=== PATIENT | female | born 1960 | race African-American/Black ===

== ENCOUNTER 2018-02-27 11:27 | Inpatient (IN) | payer OTHER ==
[2018-02-27 13:24] VITALS: BMI 32.9
--- NOTE | 2018-02-27 13:24 | HP ---
Admission ROS [facility] Allergies/Adverse Reactions: Allergies Allergy/AdvReac Type Severity Reaction Status Date / Time No Known Allergies Allergy Verified 02/27/18 14:53 - Ebola screening Have you traveled outside of the country in the last 21 days: No Have you had contact with anyone from an Ebola affected area: No Do you have a fever: No Patient History - Smoking Cessation Smoking history: Smoker current status UNK Have you smoked in the past 12 months: No Hx Chewing Tobacco Use: No Initiated information on smoking cessation: No Screened but not Admitted - Documentation of Visit Additional Information/Explanation: history of asthma and copd, smoke 5 +/- cigarettes and crack daily, c/o shortness of breath, pressure "of my lungs", as own meds ventolin pump x 1 symbicort x 1 + nebulizer albuteral 0.083% x 1, patient has hypertension and diabetes bgm 168, able to oral intak fluid [facility] Breath Alcohol Content Breath Alcohol Content: 0.082 Vital Signs - Vital Signs Vital Signs Refused: No Temperature: 98.9 F Temperature Source: Oral Pulse Rate: 118 Respiratory Rate: 20 Blood Pressure: 144/74 BP Location: Left Arm Blood Pressure Position: Sitting - Height Height: 5 ft 6 in - Weight Weight: 204 lb Weight Measurement Method: Standing Scale Body Mass Index (BMI): 32.9 - Bowel Function Bowel Movement: No
--- NOTE | 2018-02-27 15:23 | HP ---
CIWA Score - CIWA Score Nausea/Vomitin Muscle Tremors: 3 Anxiety: 3 Agitation: 3 Paroxysmal Sweats: 2 Orientation: 0-Oriented Tacttile Disturbances: 2-Mild Itch/Numbness/Burn Auditory Disturbances: 2-Mild Harshness/Frighten Visual Disturbances: 0-None Headache: 2-Mild CIWA-Ar Total Score: 20 Admission ROS [facility] - HPI Chief Complaint: i need help to stop drinking alcohol and crack Allergies/Adverse Reactions: Allergies Allergy/AdvReac Type Severity Reaction Status Date / Time No Known Allergies Allergy Verified 02/27/18 14:53 History of Present Illness: this 57 years old female with alcohol and cocaine dependence,seeking detox, withdrawal symptom,last detox in 2014 [facility] [place] [facility] history of asthma has attack on monday02/23/18 seen [place] on prednisone patient received nebulizer treatment on arrival in [facility] with difficulty in breathing history of dm longest period of sobriety 2 years anxiety,depression,insomnia - Ebola screening Have you traveled outside of the country in the last 21 days: No Have you had contact with anyone from an Ebola affected area: No Have you been sick,other than usual withdrawal symptoms: No Do you have a fever: No - Review of Systems Constitutional: Loss of Appetite, Malaise, Night Sweats, Changes in sleep, Weakness EENT: reports: Nose Congestion Respiratory: reports: Wheezing GI: reports: Diarrhea, Nausea, Vomiting, Abdominal cramping : reports: No Symptoms Reported Musculoskeletal: reports: Back Pain, Muscle Pain Integumentary: reports: Dryness Neuro: reports: Tremors Endocrine: reports: No Symptoms Reported, Other (type 2 dm) Hematology: reports: No Symptoms Reported Psychiatric: reports: No Sypmtoms Reported (insomnia), Judgement Intact, Mood/ Affect Appropiate, Anxious, Depressed Other Systems: Reviewed and Negative Patient History - Patient Medical History Hx Asthma: Yes (on albuterol inhaler) Hx Chronic Obstructive Pulmonary Disease (COPD): No Hx Cardiac Disorders: No Hx Hypertension: Yes (non compliant with meds.) Hx Seizures: No Hx Diabetes: Yes (non compliant with meds.) Hx Gastrointestinal Disorders: No Hx Genitourinary Disorders: No Hx Sexually Transmitted Disorders: No Hx Renal Disease (ESRD): No Hx Thyroid Disease: No Hx Human Immunodeficiency Virus (HIV): No (negative last 02/12) Hx Hepatitis C: No Hx Depression: No Hx Suicide Attempt: No Hx Bipolar Disorder: No Hx Schizophrenia: No Other Medical History: in somnia,no suicidal,no homicidal - Patient Surgical History Past Surgical History: No - PPD History Previous Implant?: Yes Documented Results: Negative w/o proof Implanted On Prior R Admission?: No PPD to be Administered?: Yes - Reproductive History Patient is a Female of Child Bearing Age (11 -55 yrs old): No Patient : No - Smoking Cessation Smoking history: Current every day smoker Have you smoked in the past 12 months: Yes Aproximately how many cigarettes per day: 2 Hx Chewing Tobacco Use: No Initiated information on smoking cessation: Yes 'Breaking Loose' booklet given: 02/27/18 - Substance & Tx. History Hx Alcohol Use: Yes Hx Substance Use: Yes Substance Use Type: Alcohol, Cocaine Hx Substance Use Treatment: Yes (last 2012 in the [facility]) - Substances Abused Alcohol Route: Oral Frequency: Daily Amount used: 2 PINTS TESHA Age of first use: 17 Date of Last Use: 02/27/18 Crack Route: Smoking Frequency: Daily Amount used: $20-50 Age of first use: 17 Date of Last Use: 02/27/18 Family Disease History - Family Disease History Family History: Denies Admission Physical Exam S - Vital Signs Vital Signs: Vital Signs - 24 hr 02/27/18 02/27/18 13:28 14:44 Temperature 98.9 F 98.9 F Pulse Rate 118 H 118 H Respiratory 20 20 Rate Blood Pressure 144/74 144/74 - Physical General Appearance: Yes: Moderate Distress, Tremorous, Irritable, Sweating, Anxious HEENTM: Yes: Normocephalic, TOM, Pharynx Normal Respiratory: Yes: No Respiratory Distress, Wheezing Breast: Yes: Breast Exam Deferred Cardiology: Yes: S1, S2, Tachycardia Abdominal: Yes: Within Normal Limits, Normal Bowel Sounds, Non Tender, Flat, Soft Genitourinary: Yes: Within Normal Limits Back: Yes: Muscle Spasm Musculoskeletal: Yes: Within Normal Limits, Back pain, Muscle Pain Extremities: Yes: Within Normal Limits, Tremors Neurological: Yes: rn oncology research II-XII NML intact, Fully Oriented, Alert, Motor Strength 5/5 Integumentary: Yes: Dry Lymphatic: Yes: Within Normal Limits - Diagnostic (1) Alcohol dependence with uncomplicated withdrawal Current Visit: Yes Status: Acute (2) Cocaine dependence Current Visit: Yes Status: Acute (3) Essential hypertension Current Visit: Yes Status: Acute (4) DM2 (diabetes mellitus, type 2) Current Visit: Yes Status: Acute (5) Nicotine dependence Current Visit: Yes Status: Acute (6) Acute exacerbation of extrinsic asthma Current Visit: Yes Status: Acute (7) Insomnia Current Visit: Yes Status: Acute Cleared for Admission S - Detox or Rehab [facility] Level of Care: Medically Managed Detox Regimen/Protocol: Librium S Breath Alcohol Content Breath Alcohol Content: 0.082 Urine Pregancy Test - Result Urine Test Results: Negative- NO Line Present Urine Drug Screen - Results Drug Screen Negative: No Urine Drug Screen Results: [place]-Cocaine
[2018-02-27] MEDS ORDERED: chlordiazePOXIDE HCL 25 MG CAPSULE PO PRN (15:36)
[2018-02-27] MEDS ORDERED: hydrOXYzine PAMOATE 25 MG CAPSULE (FP) PO PRN (15:36)
[2018-02-27] MEDS ORDERED: MAG HYDROX/AL HYDROX/SIMETH 30 ML UNIT-DOSE CUP PO PRN (15:36)
[2018-02-27] MEDS ORDERED: guaiFENesin/D-METHORPHAN HB 10 ML UNIT-DOSE CUPS PO PRN (15:36)
[2018-02-27] MEDS ORDERED: MAGNESIUM HYDROX 2400MG/30ML ORAL SUSPENSION 30 ML CUP PO PRN (15:36)
[2018-02-27] MEDS ORDERED: ACETAMINOPHEN 325 MG TABLET (FP) PO PRN (15:36)
[2018-02-27] MEDS ORDERED: P-EPHED 60MG/TRIPROLIDI 2.5MG TABLET PO PRN (15:36)
[2018-02-27] MEDS ORDERED: LOPERAMIDE HCL 2 MG CAPSULE PO PRN (15:36)
[2018-02-27] MEDS ORDERED: MENTHOL/PHENOL 1 EACH UD MM PRN (15:36)
[2018-02-27] MEDS ORDERED: IBUPROFEN 400 MG TABLET (FP) PO PRN (15:36)
[2018-02-27] MEDS ORDERED: MAGNESIUM CITRATE 300 ML BOTTLE PO PRN (15:36)
[2018-02-27] MEDS ORDERED: ALBUTEROL SO4 2.5/IPRATROPIUM 0.5 INH SOL 3 ML VIAL.NEB. NEB PRN (15:43)
[2018-02-27] MEDS ORDERED: chlordiazePOXIDE HCL 25 MG CAPSULE PO ONE (15:45)
[2018-02-27] MEDS ORDERED: predniSONE 20 MG TABLET (UD) PO ONE (15:45)
[2018-02-27] MEDS: HYDROCHLOROTHIAZIDE 25 MG TABLET (FP) PO SCH (17:48)
[2018-02-27] MEDS: chlordiazePOXIDE HCL 25 MG CAPSULE PO SCH ×2 (18:04→22:40)
[2018-02-27] MEDS ORDERED: MELATONIN 5 MG TABLETS PO PRN (22:00)
[2018-02-27] MEDS: THIAMINE HCL 100 MG TABLET (FP) PO SCH (22:40)
[2018-02-27] MEDS: BUDESONIDE/FORMETEROL FUMARATE 160/4.5 mcg INHALER IH SCH (22:40)
[2018-02-28] MEDS: chlordiazePOXIDE HCL 25 MG CAPSULE PO SCH ×4 (06:00→22:08)
[2018-02-28] MEDS: metFORMIN HCL 500 MG TABLET (FP) PO SCH (06:40)
--- NOTE | 2018-02-28 09:02 | EKG ---
Test Reason : Blood Pressure : / mmHG Vent. Rate : 114 BPM Atrial Rate : 114 BPM P-R Int : 148 ms QRS Dur : 072 ms QT Int : 356 ms P-R-T Axes : 077 048 048 degrees QTc Int : 490 ms SINUS TACHYCARDIA NONSPECIFIC ST ABNORMALITY ABNORMAL ECG NO PREVIOUS ECGS AVAILABLE Confirmed by CHLOE OLSEN, ZEV ([id number]) on 02/28/2018 9:01:42 AM Referred By: Confirmed By:ZEV CORONA MD
[2018-02-28 09:37] LABS: HEMATOCRIT 40.4 % (32.4-45.2); HEMOGLOBIN 14.1 GM/dL (10.7-15.3); MCH 32.8 pg (25.7-33.7); MCHC 34.8 g/dl (32.0-36.0); MEAN CELL VOLUME 94.1 fl (80-96); MEAN PLT VOLUME 8.1 fl (7.5-11.1); PLATELET COUNT 251 K/MM3 (134-434); RDW 12.6 % (11.6-15.6); WHITE BLOOD COUNT 7.2 K/mm3 (4.0-10.0)
[2018-02-28 09:58] LABS: CHLORIDE 103 mmol/L (98-107); POTASSIUM 3.8 mmol/L (3.5-5.1); SODIUM 140 mmol/L (136-145)
[2018-02-28] MEDS ORDERED: predniSONE 10 MG TABLET (UD) PO ONE (10:00)
[2018-02-28 10:24] LABS: ALBUMIN 3.5 g/dl (3.4-5.0); ALK PHOS 87 U/L (45-117); ANION GAP 12 (8-16); BILIRUBIN,TOTAL 0.4 mg/dL (0.2-1.0); BLOOD UREA NITROGEN 13 mg/dL (7-18); CALCIUM 8.7 mg/dL (8.5-10.1); CO2 25 mmol/L (21-32); CREATININE 0.8 mg/dL (0.55-1.02); GLUCOSE,RANDOM 250 mg/dL (74-106); SGOT/AST 30 U/L (15-37); SGPT/ALT 33 U/L (12-78); TOT PROT 6.9 g/dl (6.4-8.2)
[2018-02-28] MEDS: BUDESONIDE/FORMETEROL FUMARATE 160/4.5 mcg INHALER IH SCH ×2 (10:49→22:08)
[2018-02-28] MEDS: PRENATAL VITAMINS W/ FOLIC ACID TABLET (FP) PO SCH (10:49)
[2018-02-28] MEDS: HYDROCHLOROTHIAZIDE 25 MG TABLET (FP) PO SCH (10:49)
[2018-02-28 10:58] LABS: URINE APPEARANCE CLEAR; URINE BILIRUBIN NEGATIVE (<2.0 mg/dL); URINE COLOR LTYELLOW; URINE GLUCOSE (UA) 2+ (NEGATIVE); URINE KETONE NEGATIVE (NEGATIVE); URINE LEUK ESTERASE NEGATIVE (NEGATIVE); URINE NITRITE NEGATIVE (NEGATIVE); URINE PROTEIN NEGATIVE (NEGATIVE); URINE UROBILINOGEN NEGATIVE mg/dL (0.2-1.0)
[2018-02-28 11:08] LABS: RPR REACTIVE 1:4 (NONREACTIVE)
--- NOTE | 2018-02-28 12:10 | PN ---
[facility] CIWA - CIWA Score Nausea/Vomitin-Mild Nausea/No Vomiting Muscle Tremors: 4-Moderate,w/Arms Extend Anxiety: 4-Mod. Anxious/Guarded Agitation: 4-Moderately Restless Paroxysmal Sweats: 1-Minimal Palms Moist Orientation: 1-Uncertain about Date Tacttile Disturbances: 0-None Auditory Disturbances: 0-None Visual Disturbances: 0-None Headache: 0-None Present CIWA-Ar Total Score: 15 [facility]HS Progress Note (SOAP) Subjective: sweat tremor trouble sleep at night Objective: 02/28/18 12:08 Vital Signs Temperature 98.9 F 02/28/18 12:05 Pulse Rate 118 H 02/28/18 12:05 Respiratory Rate 20 02/28/18 12:05 Blood Pressure 144/74 02/28/18 12:05 O2 Sat by Pulse Oximetry (%) Laboratory Last Values WBC 7.2 K/mm3 (4.0-10.0) 02/28/18 08:00 RBC 4.30 M/mm3 (3.60-5.2) 02/28/18 08:00 Hgb 14.1 GM/dL (10.7-15.3) 02/28/18 08:00 Hct 40.4 % (32.4-45.2) 02/28/18 08:00 MCV 94.1 fl (80-96) 02/28/18 08:00 MCH 32.8 pg (25.7-33.7) 02/28/18 08:00 MCHC 34.8 g/dl (32.0-36.0) 02/28/18 08:00 RDW 12.6 % (11.6-15.6) 02/28/18 08:00 Plt Count 251 K/MM3 (134-434) 02/28/18 08:00 MPV 8.1 fl (7.5-11.1) 02/28/18 08:00 Sodium 140 mmol/L (136-145) 02/28/18 08:00 Potassium 3.8 mmol/L (3.5-5.1) 02/28/18 08:00 Chloride 103 mmol/L (98-107) 02/28/18 08:00 Carbon Dioxide 25 mmol/L (21-32) 02/28/18 08:00 Anion Gap 12 (8-16) 02/28/18 08:00 BUN 13 mg/dL (7-18) 02/28/18 08:00 Creatinine 0.8 mg/dL (0.55-1.02) 02/28/18 08:00 Creat Clearance w eGFR > 60 (>60) 02/28/18 08:00 POC Glucometer 198 UNITS (80-120) 02/28/18 06:38 Random Glucose 250 mg/dL (74-106) H 02/28/18 08:00 Calcium 8.7 mg/dL (8.5-10.1) 02/28/18 08:00 Total Bilirubin 0.4 mg/dL (0.2-1.0) 02/28/18 08:00 AST 30 U/L (15-37) 02/28/18 08:00 ALT 33 U/L (12-78) 02/28/18 08:00 Alkaline Phosphatase 87 U/L (45-117) 02/28/18 08:00 Total Protein 6.9 g/dl (6.4-8.2) 02/28/18 08:00 Albumin 3.5 g/dl (3.4-5.0) 02/28/18 08:00 Urine Color Ltyellow 02/28/18 09:50 Urine Appearance Clear 02/28/18 09:50 Urine pH 6.0 (5.0-8.0) 02/28/18 09:50 Ur Specific [place] 1.018 (1.001-1.035) 02/28/18 09:50 Urine Protein Negative (NEGATIVE) 02/28/18 09:50 Urine Glucose (UA) 2+ (NEGATIVE) H 02/28/18 09:50 Urine Ketones Negative (NEGATIVE) 02/28/18 09:50 Urine Blood Negative (NEGATIVE) 02/28/18 09:50 Urine Nitrite Negative (NEGATIVE) 02/28/18 09:50 Urine Bilirubin Negative (<2.0 mg/dL) 02/28/18 09:50 Urine Urobilinogen Negative mg/dL (0.2-1.0) 02/28/18 09:50 Ur Leukocyte Esterase Negative (NEGATIVE) 02/28/18 09:50 RPR Titer Reactive 1:4 (NONREACTIVE) H 02/28/18 08:00 HIV 1&2 Antibody Screen Negative 02/28/18 08:00 HIV P24 Antigen Negative 02/28/18 08:00 lab noted "10+ years ago" patient stated that she was treated for syphilis many years ago and the number always around 1:4 Assessment: 02/28/18 12:09 withdrawal sx debra 02/28/18 12:09 Plan: continue detox no syphilis treatment at this time discuss safe sex
[2018-02-28 13:48] LABS: TREPONEMA ANTIBODY REACTIVE (NONREACTIVE)
--- NOTE | 2018-02-28 14:40 | CONSULT ---
[facility] Psychiatric Consult - Data Date of interview: 02/28/18 Admission source: [facility] Identifying data: Patient is a 57 year old single female, mother of two, unemployed, homeless, and supported by [facility]. This is patient's first admission to detox at [facility]. Pt. admitted to for alcohol and cocaine dependence. Substance Abuse History: Smoking Cessation. Smoking history: Current every day smoker. Have you smoked in the past 12 months: Yes. Aproximately how many cigarettes per day: 2. Hx Chewing Tobacco Use: No. Initiated information on smoking cessation: Yes. 'Breaking Loose' booklet given: 02/27/18. - Substance & Tx. History. Hx Alcohol Use: Yes. Hx Substance Use: Yes. Substance Use Type : Alcohol, Cocaine. Hx Substance Use Treatment: Yes (last 2012 in [facility]). - Substances Abused. Alcohol. Route: Oral. Frequency: Daily. Amount used : 2 PINTS TESHA. Age of first use: 17. Date of Last Use: 02/27/18. Crack. Route: Smoking. Frequency: Daily. Amount used: $20-50. Age of first use: 17. Date of Last Use: 02/27/18 Medical History: Asthma, hypertension, diabetes, Psychiatric History: Patient denies h/o psychiatric hospitalizations, outpatient care, and suicide attempt. Pt. reports h/o poor sleep and reports taking ambien 10mg for insomnia. Physical/Sexual Abuse/Trauma History: Denies. Mental Status Exam - Mental Status Exam Alert and Oriented to: Time, Place, Person Cognitive Function: Good Patient Appearance: Well Groomed Mood: Euthymic Affect: Mood Congruent Patient Behavior: Appropriate, Cooperative Speech Pattern: Appropriate Voice Loudness: Normal Thought Process: Intact, Goal Oriented Thought Disorder: Not Present Hallucinations: Denies Suicidal Ideation: Denies Homicidal Ideation: Denies Insight/Judgement: Poor Sleep: Poorly Appetite: Fair Muscle strength/Tone: Normal Gait/Station: Normal Psychiatric Findings - Problem List ([place] 1, 2,3) (1) Acute exacerbation of extrinsic asthma Current Visit: Yes Status: Acute (2) Alcohol dependence with uncomplicated withdrawal Current Visit: Yes Status: Acute (3) Cocaine dependence Current Visit: Yes Status: Acute (4) DM2 (diabetes mellitus, type 2) Current Visit: Yes Status: Acute (5) Essential hypertension Current Visit: Yes Status: Acute (6) Insomnia Current Visit: Yes Status: Acute (7) Nicotine dependence Current Visit: Yes Status: Acute - Initial Treatment Plan Initial Treatment Plan: Psychoeducation provided. Detoxification provided. Ambien 10mg qhs prn ordered for insomnia. Benefits and side effects discussed. Pt. made aware of the risk of parasomnia. Verbal consent given.
[2018-02-28] MEDS: ALBUTEROL SO4 8 GM HFA INHALER IH PRN ×2 (17:24→21:36)
[2018-02-28] MEDS: THIAMINE HCL 100 MG TABLET (FP) PO SCH (22:08)
[2018-02-28] MEDS: ZOLPIDEM TARTRATE 5 MG TABLET PO PRN (22:08)
[2018-03-01] MEDS ORDERED: predniSONE 20 MG TABLET (UD) PO ONE ×2 (01:00→10:00)
[2018-03-01] MEDS: chlordiazePOXIDE HCL 25 MG CAPSULE PO SCH ×2 (06:22→10:39)
[2018-03-01] MEDS: metFORMIN HCL 500 MG TABLET (FP) PO SCH (06:26)
[2018-03-01] MEDS: HYDROCHLOROTHIAZIDE 25 MG TABLET (FP) PO SCH (10:38)
[2018-03-01] MEDS: PRENATAL VITAMINS W/ FOLIC ACID TABLET (FP) PO SCH (10:38)
[2018-03-01] MEDS: BUDESONIDE/FORMETEROL FUMARATE 160/4.5 mcg INHALER IH SCH ×2 (10:39→21:56)
[2018-03-01] MEDS: LIDOCAINE 5% TOPICAL PATCH TP SCH (10:39)
--- NOTE | 2018-03-01 14:06 | PN ---
S CIWA - CIWA Score Nausea/Vomitin-Mild Nausea/No Vomiting Muscle Tremors: 4-Moderate,w/Arms Extend Anxiety: 3 Agitation: 3 Paroxysmal Sweats: 1-Minimal Palms Moist Orientation: 0-Oriented Tacttile Disturbances: 0-None Auditory Disturbances: 0-None Visual Disturbances: 0-None Headache: 0-None Present CIWA-Ar Total Score: 12 BHS Progress Note (SOAP) Subjective: sweat tremor irritable anxiety poor sleep Objective: 03/01/18 14:13 Vital Signs Temperature 97.5 F L 03/01/18 14:02 Pulse Rate 83 03/01/18 14:02 Respiratory Rate 18 03/01/18 14:02 Blood Pressure 130/67 03/01/18 14:02 O2 Sat by Pulse Oximetry (%) Laboratory Last Values WBC 7.2 K/mm3 (4.0-10.0) 02/28/18 08:00 RBC 4.30 M/mm3 (3.60-5.2) 02/28/18 08:00 Hgb 14.1 GM/dL (10.7-15.3) 02/28/18 08:00 Hct 40.4 % (32.4-45.2) 02/28/18 08:00 MCV 94.1 fl (80-96) 02/28/18 08:00 MCH 32.8 pg (25.7-33.7) 02/28/18 08:00 MCHC 34.8 g/dl (32.0-36.0) 02/28/18 08:00 RDW 12.6 % (11.6-15.6) 02/28/18 08:00 Plt Count 251 K/MM3 (134-434) 02/28/18 08:00 MPV 8.1 fl (7.5-11.1) 02/28/18 08:00 Sodium 140 mmol/L (136-145) 02/28/18 08:00 Potassium 3.8 mmol/L (3.5-5.1) 02/28/18 08:00 Chloride 103 mmol/L (98-107) 02/28/18 08:00 Carbon Dioxide 25 mmol/L (21-32) 02/28/18 08:00 Anion Gap 12 (8-16) 02/28/18 08:00 BUN 13 mg/dL (7-18) 02/28/18 08:00 Creatinine 0.8 mg/dL (0.55-1.02) 02/28/18 08:00 Creat Clearance w eGFR > 60 (>60) 02/28/18 08:00 POC Glucometer 122 UNITS (80-120) 03/01/18 06:24 Random Glucose 250 mg/dL (74-106) H 02/28/18 08:00 Calcium 8.7 mg/dL (8.5-10.1) 02/28/18 08:00 Total Bilirubin 0.4 mg/dL (0.2-1.0) 02/28/18 08:00 AST 30 U/L (15-37) 02/28/18 08:00 ALT 33 U/L (12-78) 02/28/18 08:00 Alkaline Phosphatase 87 U/L (45-117) 02/28/18 08:00 Total Protein 6.9 g/dl (6.4-8.2) 02/28/18 08:00 Albumin 3.5 g/dl (3.4-5.0) 02/28/18 08:00 Urine Color Ltyellow 02/28/18 09:50 Urine Appearance Clear 02/28/18 09:50 Urine pH 6.0 (5.0-8.0) 02/28/18 09:50 Ur Specific [place] 1.018 (1.001-1.035) 02/28/18 09:50 Urine Protein Negative (NEGATIVE) 02/28/18 09:50 Urine Glucose (UA) 2+ (NEGATIVE) H 02/28/18 09:50 Urine Ketones Negative (NEGATIVE) 02/28/18 09:50 Urine Blood Negative (NEGATIVE) 02/28/18 09:50 Urine Nitrite Negative (NEGATIVE) 02/28/18 09:50 Urine Bilirubin Negative (<2.0 mg/dL) 02/28/18 09:50 Urine Urobilinogen Negative mg/dL (0.2-1.0) 02/28/18 09:50 Ur Leukocyte Esterase Negative (NEGATIVE) 02/28/18 09:50 RPR Titer Reactive 1:4 (NONREACTIVE) H 02/28/18 08:00 T.pallidum Ab (MHA) Reactive (NONREACTIVE) 02/28/18 08:00 HIV 1&2 Antibody Screen Negative 02/28/18 08:00 HIV P24 Antigen Negative 02/28/18 08:00 lab noted 03/01/18 14:14 history of syphilis treated Assessment: 03/01/18 14:14 withdrawal sx Plan: continue detox
[2018-03-01] MEDS: chlordiazePOXIDE 5 MG CAPSULE PO SCH ×2 (17:29→22:42)
[2018-03-01] MEDS: THIAMINE HCL 100 MG TABLET (FP) PO SCH (21:56)
[2018-03-01] MEDS: ZOLPIDEM TARTRATE 5 MG TABLET PO PRN (22:00)
[2018-03-02] MEDS: chlordiazePOXIDE 5 MG CAPSULE PO SCH ×2 (05:39→11:02)
[2018-03-02] MEDS: metFORMIN HCL 500 MG TABLET (FP) PO SCH (07:24)
[2018-03-02] MEDS: BUDESONIDE/FORMETEROL FUMARATE 160/4.5 mcg INHALER IH SCH ×2 (09:07→22:25)
[2018-03-02] MEDS: ALBUTEROL SO4 8 GM HFA INHALER IH PRN (09:08)
[2018-03-02] MEDS ORDERED: predniSONE 10 MG TABLET (UD) PO ONE (10:00)
[2018-03-02] MEDS: PRENATAL VITAMINS W/ FOLIC ACID TABLET (FP) PO SCH (11:02)
[2018-03-02] MEDS: HYDROCHLOROTHIAZIDE 25 MG TABLET (FP) PO SCH (11:04)
[2018-03-02] MEDS: LIDOCAINE 5% TOPICAL PATCH TP SCH (11:04)
--- NOTE | 2018-03-02 12:47 | PN ---
S Progress Note (SOAP) Subjective: pt here for alcohol detox and cocaine use. Laying in bed Objective: 03/02/18 12:46 CBCD WBC 7.2 K/mm3 (4.0-10.0) 02/28/18 08:00 RBC 4.30 M/mm3 (3.60-5.2) 02/28/18 08:00 Hgb 14.1 GM/dL (10.7-15.3) 02/28/18 08:00 Hct 40.4 % (32.4-45.2) 02/28/18 08:00 MCV 94.1 fl (80-96) 02/28/18 08:00 MCHC 34.8 g/dl (32.0-36.0) 02/28/18 08:00 RDW 12.6 % (11.6-15.6) 02/28/18 08:00 Plt Count 251 K/MM3 (134-434) 02/28/18 08:00 MPV 8.1 fl (7.5-11.1) 02/28/18 08:00 CMP Sodium 140 mmol/L (136-145) 02/28/18 08:00 Potassium 3.8 mmol/L (3.5-5.1) 02/28/18 08:00 Chloride 103 mmol/L (98-107) 02/28/18 08:00 Carbon Dioxide 25 mmol/L (21-32) 02/28/18 08:00 Anion Gap 12 (8-16) 02/28/18 08:00 BUN 13 mg/dL (7-18) 02/28/18 08:00 Creatinine 0.8 mg/dL (0.55-1.02) 02/28/18 08:00 Creat Clearance w eGFR > 60 (>60) 02/28/18 08:00 Calcium 8.7 mg/dL (8.5-10.1) 02/28/18 08:00 Total Bilirubin 0.4 mg/dL (0.2-1.0) 02/28/18 08:00 AST 30 U/L (15-37) 02/28/18 08:00 ALT 33 U/L (12-78) 02/28/18 08:00 Alkaline Phosphatase 87 U/L (45-117) 02/28/18 08:00 Total Protein 6.9 g/dl (6.4-8.2) 02/28/18 08:00 Albumin 3.5 g/dl (3.4-5.0) 02/28/18 08:00 nl VS PE grossly nl Assessment: 03/02/18 12:47 Alcohol use disorder cocaine use Plan: alcohol detox protocol
[2018-03-02] MEDS: chlordiazePOXIDE HCL 10 MG CAPSULE PO SCH ×2 (17:04→22:25)
[2018-03-02 21:57] VITALS: TEMP 97.7
[2018-03-02] MEDS: THIAMINE HCL 100 MG TABLET (FP) PO SCH (22:25)
[2018-03-02] MEDS: ZOLPIDEM TARTRATE 5 MG TABLET PO PRN (22:25)
[2018-03-02] MEDS: LIDOCAINE PATCH REMOVAL MC SCH ×2 (23:31)
[2018-03-03] MEDS: chlordiazePOXIDE HCL 10 MG CAPSULE PO SCH (05:40)
[2018-03-03] MEDS: metFORMIN HCL 500 MG TABLET (FP) PO SCH (06:11)
--- NOTE | 2018-03-03 08:19 | PN ---
S Progress Note (SOAP) Subjective: ALERT,NO COMPLAINT Objective: 03/03/18 08:18 Vital Signs Temperature 97.7 F 03/03/18 06:34 Pulse Rate 72 03/03/18 06:34 Respiratory Rate 18 03/03/18 06:34 Blood Pressure 137/76 03/03/18 06:34 O2 Sat by Pulse Oximetry (%) Assessment: 03/03/18 08:18 DETOX COMPLETED,NO WITHDRAWAL SYMPTOM Plan: DISCHARGE TODAY,FOLLOW UP WITH AFTER CARE PROGRAM ARRANGEMENT
--- NOTE | 2018-03-03 08:24 | DS ---
[facility] Detox Discharge Summary Admission Date: 02/27/18 Discharge Date: 03/03/18 - History Present History: Alcohol Dependence, Cocaine Dependence Additional Comments: FOLLOW UP WITH AFTER CARE PROGRAM ARRANGEMENT Pertinent Past History: ESSENTIAL HYPERTENSION COPD TYPE 2 DM - Physical Exam Results Vital Signs: Vital Signs Temperature 97.7 F 03/03/18 06:34 Pulse Rate 72 03/03/18 06:34 Respiratory Rate 18 03/03/18 06:34 Blood Pressure 137/76 03/03/18 06:34 O2 Sat by Pulse Oximetry (%) Pertinent Admission Physical Exam Findings: WITHDRAWAL SIGNS AND SYMPTOM Laboratory Last Values WBC 7.2 K/mm3 (4.0-10.0) 02/28/18 08:00 RBC 4.30 M/mm3 (3.60-5.2) 02/28/18 08:00 Hgb 14.1 GM/dL (10.7-15.3) 02/28/18 08:00 Hct 40.4 % (32.4-45.2) 02/28/18 08:00 MCV 94.1 fl (80-96) 02/28/18 08:00 MCH 32.8 pg (25.7-33.7) 02/28/18 08:00 MCHC 34.8 g/dl (32.0-36.0) 02/28/18 08:00 RDW 12.6 % (11.6-15.6) 02/28/18 08:00 Plt Count 251 K/MM3 (134-434) 02/28/18 08:00 MPV 8.1 fl (7.5-11.1) 02/28/18 08:00 Sodium 140 mmol/L (136-145) 02/28/18 08:00 Potassium 3.8 mmol/L (3.5-5.1) 02/28/18 08:00 Chloride 103 mmol/L (98-107) 02/28/18 08:00 Carbon Dioxide 25 mmol/L (21-32) 02/28/18 08:00 Anion Gap 12 (8-16) 02/28/18 08:00 BUN 13 mg/dL (7-18) 02/28/18 08:00 Creatinine 0.8 mg/dL (0.55-1.02) 02/28/18 08:00 Creat Clearance w eGFR > 60 (>60) 02/28/18 08:00 POC Glucometer 115 UNITS (80-120) 03/03/18 05:38 Random Glucose 250 mg/dL (74-106) H 02/28/18 08:00 Calcium 8.7 mg/dL (8.5-10.1) 02/28/18 08:00 Total Bilirubin 0.4 mg/dL (0.2-1.0) 02/28/18 08:00 AST 30 U/L (15-37) 02/28/18 08:00 ALT 33 U/L (12-78) 02/28/18 08:00 Alkaline Phosphatase 87 U/L (45-117) 02/28/18 08:00 Total Protein 6.9 g/dl (6.4-8.2) 02/28/18 08:00 Albumin 3.5 g/dl (3.4-5.0) 02/28/18 08:00 Urine Color Ltyellow 02/28/18 09:50 Urine Appearance Clear 02/28/18 09:50 Urine pH 6.0 (5.0-8.0) 02/28/18 09:50 Ur Specific [place] 1.018 (1.001-1.035) 02/28/18 09:50 Urine Protein Negative (NEGATIVE) 02/28/18 09:50 Urine Glucose (UA) 2+ (NEGATIVE) H 02/28/18 09:50 Urine Ketones Negative (NEGATIVE) 02/28/18 09:50 Urine Blood Negative (NEGATIVE) 02/28/18 09:50 Urine Nitrite Negative (NEGATIVE) 02/28/18 09:50 Urine Bilirubin Negative (<2.0 mg/dL) 02/28/18 09:50 Urine Urobilinogen Negative mg/dL (0.2-1.0) 02/28/18 09:50 Ur Leukocyte Esterase Negative (NEGATIVE) 02/28/18 09:50 RPR Titer Reactive 1:4 (NONREACTIVE) H 02/28/18 08:00 T.pallidum Ab (MHA) Reactive (NONREACTIVE) 02/28/18 08:00 HIV 1&2 Antibody Screen Negative 02/28/18 08:00 HIV P24 Antigen Negative 02/28/18 08:00 Vital Signs Temperature 97.7 F 03/03/18 06:34 Pulse Rate 72 03/03/18 06:34 Respiratory Rate 18 07/18 06:34 Blood Pressure 137/76 03/03/18 06:34 O2 Sat by Pulse Oximetry (%) - Treatment Hospital Course: Detox Protocol Followed, Detoxed Safely, Responded well, Discharged Condition Good, Rehab Referral Accepted Patient has Accepted a Rehab Referral to: [facility] - Medication Discharge Medications: Ambulatory Orders Albuterol Sulfate Inhaler - [Ventolin Hfa Inhaler -] 2 inh PO Q4H PRN 02/27/18 Budesonide/Formeterol Fumarate [SYMBICORT 160/4.5mcg -] 1 inh PO BID 02/27/18 Hydrochlorothiazide [Hctz -] 25 mg PO DAILY 02/27/18 Metformin HCl [Glucophage] 500 mg PO DAILY 02/27/18 Zolpidem Tartrate [Ambien] 10 mg PO HS 02/27/18 - Diagnosis (1) Alcohol dependence with uncomplicated withdrawal Current Visit: Yes Status: Acute (2) Cocaine dependence Current Visit: Yes Status: Acute (3) Essential hypertension Current Visit: Yes Status: Acute (4) DM2 (diabetes mellitus, type 2) Current Visit: Yes Status: Acute (5) Nicotine dependence Current Visit: Yes Status: Acute (6) Acute exacerbation of extrinsic asthma Current Visit: Yes Status: Acute (7) Insomnia Current Visit: Yes Status: Acute - AMA Did Patient Leave Against Medical Advice: No
[2018-03-03] MEDS: HYDROCHLOROTHIAZIDE 25 MG TABLET (FP) PO SCH (09:16)
[2018-03-03 09:25] VITALS: BP 126/74; PULSE 86
[2018-03-03] MEDS ORDERED: predniSONE 5 MG TABLET (UD) PO ONE (10:00)
== END 2018-03-03 09:18 | disposition home or self-care (01) | DRG 774 ==
LOC: YASAS 11:27 → Y6N 15:26
PROVIDERS: ADMIT Surgery; ATTEND Surgery
PROC: HZ2ZZZZ Detoxification Services for Substance Abuse Treatment (ICD-10-PCS; principal; 2018-02-27)
DX: F10.230 Alcohol dependence with withdrawal, uncomplicated (principal); F14.20 Cocaine dependence, uncomplicated; F17.213 Nicotine dependence, cigarettes, with withdrawal; G47.00 Insomnia, unspecified; I10 Essential (primary) hypertension; E11.9 Type 2 diabetes mellitus without complications; J45.901 Unspecified asthma with (acute) exacerbation; Z86.19 Personal history of other infectious and parasitic diseases; Z91.14 Patient's other noncompliance with medication regimen; Z59.0 Homelessness; Z79.84 Long term (current) use of oral hypoglycemic drugs
CPT/HCPCS: 36415; 80053; 81003; 82962; 85027; 86593; 86780; 87389; 93005; 93010; 94640; J7620